=== PATIENT | male | born 1965 | race Caucasian/White ===

== ENCOUNTER → 2023-11-25 06:38 | Day surgery (SDC) | payer BC, SELFPAY | LOC: GI 06:38 | PROVIDERS: ATTENDING PHYSICIAN Internal Medicine Gastroenterology | DX: Z12.11 Encounter for screening for malignant neoplasm of colon (principal); D12.3 Benign neoplasm of transverse colon; D12.5 Benign neoplasm of sigmoid colon; K64.8 Other hemorrhoids; Z86.010 Personal history of colon polyps | CPT/HCPCS: 45385; 88305 ==

== ENCOUNTER 2024-07-28 02:42 | Emergency (ER) | payer BC, SELFPAY ==
[2024-07-28 02:44] VITALS: BP 162/91
[2024-07-28 04:59] VITALS: BMI 35.4
[2024-07-28 05:03] LABS: % Basophils 0.2 % (0-2); % Eosinophils 1.7 % (0-6); % Immature Granulocytes 0.3 % (0-0.5); % Lymphocytes 16.2 % (20.5-51.1); % Monocytes 6.1 % (1.7-9.3); % Neutrophils 75.5 % (42.2-75.2); Absolute Eosinophils 0.2 10^3/uL (0-0.7); Absolute Lymphocytes 1.7 10^3/uL (1.2-3.4); Absolute Monocytes 0.6 10^3/uL (0.1-0.6); Absolute Neutrophils 7.9 10^3/uL (1.4-6.5); Hematocrit 47.2 % (39.0-52.0); Hemoglobin 16.2 g/dL (13.0-18.0); Mean Corp Hgb Conc. 34.3 g/dL (33.0-37.0); Mean Corpuscular Hgb 30.2 pg (27.0-31.0); Mean Corpuscular Volume 88.1 fL (80.0-94.0); Mean Platelet Volume 9.3 fL (7.4-10.4); Nucleated Red Blood Cells % 0 % (-); Platelet Count 288 10^3/uL (130-400); Red Blood Cell Count 5.36 10^6/uL (4.70-6.10); Urine Albumin Negative (Neg - Trace); Urine Bilirubin Negative (Negative); Urine Character Clear (Clear); Urine Color Yellow; Urine Glucose Negative (Negative); Urine Ketone Negative (Negative); Urine Leukocyte Trace (Negative); Urine Nitrite Negative (Negative); Urine Occult Blood Negative (Negative); Urine Urobilinogen Negative (Neg - 1+); White Blood Cell Count 10.4 10^3/uL (4.8-10.8)
[2024-07-28 05:12] LABS: Urine Amorphous Seen; Urine Bacteria Few (Negative); Urine Red Blood Cell 0-2 /HPF (0-2)
[2024-07-28 05:17] LABS: Lactic Acid 1.1 mmol/L (0.7-2.0)
[2024-07-28 05:26] LABS: ALT (SGPT) 33 U/L (0-50); AST (SGOT) 26 U/L (17-59); Albumin 4.8 g/dl (3.5-5.0); Alkaline Phosphatase 65 U/L (38-126); Blood Urea Nitrogen 21 mg/dl (9-20); Calcium 10.3 mg/dl (8.4-10.2); Carbon Dioxide 25 mmol/L (22-30); Chloride 103 mmol/L (98-107); Estimated Creatinine Clearance 86 ml/min; Glucose 153 mg/dl (70-99); Potassium 4.2 mmol/L (3.5-5.1); Sodium 142 mmol/L (135-145); Total Bilirubin 0.5 mg/dl (0.2-1.3); Total Protein 7.7 g/dl (6.3-8.2); eGFR > 60.00
--- NOTE | 2024-07-28 06:27 | ED.GENMED ---
History of Present Illness
General
Chief Complaint: Abdominal Pain
Source: patient
Exam Limitations: none
Time Seen by Provider: 07/28/24 04:21
Nursing documentation reviewed up to this point in time: agreed with
History of Present Illness
History of Present Illness:
This is a 59-year-old gentleman who has history of mxq-kiduopm-sdhxbweas diabetes, hyperlipidemia, hypertension, anxiety/depression. He complains of several day history of lower abdominal discomfort associated with a sense of constipation. He has
been passing bowel movements, soft/formed stools but feels a sense of incomplete emptying and no relief with a trial of 2 doses of MiraLAX yesterday as well as suppository tonight and 2 enemas tonight. He had been prescribed semaglutide 2 months
ago but stopped this within the first 3 weeks due to significant constipation. His last dose of semaglutide was a month ago. Lower abdominal discomfort has been 'building up' over the past week. He denies fever nor chills, no dysuria and urgency
and or hematuria, no back pain or flank pain, no nausea nor vomiting. Appetite has been good.
No history of similar episodes in the past.
Past History
Past History
ED Past Medical History: HTN, Hypercholesterolemia, NIDDM and Psychiatric
ED Past Surgical History: None
Social History
Tobacco: Non-smoker
Personal:
Living: with family
Employment: Employed
Family History
Family History: Other (Noncontributory)
Phy Exam
Physical Exam
Physical Exam:
GENERAL: 59-year-old gentleman appears his stated age, awake and alert, pleasant, appears in no acute distress.
EYE: anicteric
NECK: Supple, nontender, no meningismus, no significant adenopathy.
ENT: oral mucosa is moist. No rhinorrhea.
CARDIAC: Regular rate and rhythm. no murmur.
LUNGS: Clear breath sounds bilaterally, no acute respiratory distress, no wheezes/rales/rhonchi
ABDOMEN: Rotund, soft, nondistended, minimal tenderness generalized to the lower abdomen with the palpation only, no rebound or guarding no rigidity, no palpable masses. no cvat. normoactive BS.
NEUROLOGICAL: Alert and oriented x3, no focal neuro deficits. Gait is lawrence and steady.
SKIN: Warm and dry, normal color, skin intact. No rash.
MUSCULOSKELETAL: No C/C/E. peripheral pulses are full and equal b/l. No palpable tenderness.
PSYCH: Normal and appropriate interaction.
Course
Orders/Labs/Results
Orders:
Orders
07/28/24 04:31
CT Abd/pelvis W Iv Cont Urgent
Comment:
Reason For Exam: gen lower abd pain, feeling of constipation
07/28/24 04:55
Complete Blood Count/With Diff Urgent
Comprehensive Metabolic Panel Urgent
Lactic Acid Urgent
Urinalysis Reflex To Culture Urgent
Date Specimen was Collected: 07/28/24
Time Specimen was Collected: 04:44
Urine Microscopic Reflex Cult Urgent
Abnormal Lab Results
07/28/24
04:55
Absolute Neuts (auto) 7.9 H 10^3/uL
(1.4-6.5)
Neutrophils % 75.5 H %
(42.2-75.2)
Lymphocytes % 16.2 L %
(20.5-51.1)
BUN 21 H mg/dl
(9-20)
Glucose 153 H mg/dl
(70-99)
Calcium 10.3 H mg/dl
(8.4-10.2)
Leukocyte Esterase Rfl Trace A
(Negative)
Urine Bacteria (Reflex) Few A
(Negative)
07/28/24 04:55
07/28/24 04:55
Vital Signs
Initial and Last Documented VS:
Initial Vital Signs
Temp Pulse Resp BP Pulse Ox
98 F 72 18 162/91 100
07/28/24 02:44 07/28/24 02:44 07/28/24 02:44 07/28/24 02:44 07/28/24 02:44
Last Documented Vital Signs
Temp Pulse Resp BP Pulse Ox
98 F 72 18 162/91 100
07/28/24 02:44 07/28/24 02:44 07/28/24 02:44 07/28/24 02:44 07/28/24 02:44
MDM/Problems Addressed
Differential Diagnosis Includes:
I am not convinced that patient is constipated, concern for diverticulitis, colitis, appendicitis, UTI, irritable bowel syndrome. Small bowel obstruction is unlikely.
Will check labs, urinalysis and plan for CT abdomen and pelvis.
As patient discontinued semaglutide over 1 month ago, likely not contributing factor at this point.
Chronic conditions affecting care: DM, HTN and Psychiatric illness
*Radiology
Radiology exam reviewed: radiology read reviewed (CT abdomen pelvis is overall unremarkable. Normal appendix, no bowel obstruction or diverticulitis. Bladder wall thickening without obstructing renal stone.)
*Pulse Oximetry
Patient hypoxic: no
*Critical Care Note
Total Time (30-74mins, 75-104mins- exclusive of procedures): Not Applicable
Update Note
Update Note:
Labs are unremarkable with normal white blood cell count, unremarkable chemistries save for mildly elevated random glucose 153.
Urinalysis shows few bacteria, 6-10 WBCs not exactly consistent with UTI.
CT abdomen pelvis is unremarkable save for mild bladder wall thickening which could be attributed to UTI.
There is no evidence of diverticulitis, colitis, nor appendicitis, nor constipation.
I am not completely convinced for UTI but will await urine culture and will give a one-time dose of Monurol for potential UTI and await culture result.
Recommend he discontinue laxatives, enemas etc as he is not constipated.
Prompt follow-up with PCP for recheck.
ED Attending Note
-
Portions of this chart may have been created with voice recognition software.� Occasional wrong word or��sound alike� substitutions may have occurred due to the inherent limitations of voice recognition software.
Discharge Plan
Departure
Patient Disposition: Home (Routine Discharge)
Date of Disposition: 07/28/24
Time of Disposition: 06:38
Patient with high blood pressure during this ER visit?: No
Condition: Good
Discharge Problem:
Abdominal pain, lower, Bladder wall thickening
Instructions: Abdominal Pain
Referrals:
Jose Antonio Joseph MD [Family Provider] - Call in 1-3 days for appt
Activity Restrictions/Additional Instructions:
You have been given a one-time dose of Monurol for potential urinary tract infection. Few bacteria noted in urine specimen and CAT scan shows mild bladder wall thickening. Otherwise CAT scan unremarkable. Stay well-hydrated on a daily basis.
Discontinue enemas, laxatives etc.; you are not constipated.
Follow-up with your primary care physician this week for recheck.
Urine culture is pending�generally takes 3 to 4 days to result.
Interventions
Interventions:
*Risk Screen - Suicide Last Done: 07/28/24 02:44
*General Assessment Last Done: 07/28/24 02:44
*Neglect/Abuse Screening Last Done: 07/28/24 02:44
ED- Fall Risk Assessment Last Done: 07/28/24 04:59
*ED COVID-19 Vaccine History Last Done: 07/28/24 04:59
RL-Gfvimo-Rdjshjtikb Assessment Last Done: 07/28/24 04:59
Discharge Date and Time
Print Language: NIGERIEN
[2024-07-28] MEDS: MONUROL 3 GM PO (06:53)
[2024-07-28 07:00] VITALS: BP 143/80
== END 2024-07-28 07:03 | disposition home or self-care (01) ==
LOC: EMR 02:42
PROVIDERS: EMERGENCY PHYSICIAN Emergency Medicine; FAMILY PHYSICIAN Internal Medicine
DX: R10.30 Lower abdominal pain, unspecified (principal); N32.89 Other specified disorders of bladder; R82.71 Bacteriuria; E11.9 Type 2 diabetes mellitus without complications; E78.00 Pure hypercholesterolemia, unspecified; I10 Essential (primary) hypertension
CPT/HCPCS: 99284; 74177; 80053; 81003; 81015; 83605; 85025; 87086; Q9967